=== PATIENT | female | born 2000 | race Two or more races ===

== ENCOUNTER 2024-08-22 11:03 | Outpatient (CLI) | payer OTHER | END 2024-08-22 11:07 | disposition home or self-care (01) | LOC: PRENATAL 11:03 | PROVIDERS: ATTEND Obstetrics & Gynecology Maternal & Fetal Medicine | DX: O35.3XX0 Maternal care for (suspected) damage to fetus from viral disease in mother, not applicable or unspecified (principal); O44.00 Complete placenta previa NOS or without hemorrhage, unspecified trimester; Z36.0 Encounter for antenatal screening for chromosomal anomalies; Z14.8 Genetic carrier of other disease; Z3A.18 18 weeks gestation of pregnancy ==